=== PATIENT | male | born 1995 | race Two or more races ===

== ENCOUNTER 2017-05-18 20:51 | Inpatient (IN) | payer OTHER ==
[~2017-05-18] VITALS: Ht 160 cm; Wt 80.5 kg
--- NOTE | ~2017-05-18 | CON ---
PATIENT'S NAME: JO SHAVER [facility] AGE: 21 Y [address] ROOM: [place] [address] LOCATION: [facility] [place] ADMIT DATE: 05/18/2017 Consultation DISCHARGE DATE: FAMILY PHYSICIAN: PHYSICIAN, UNKNOWN ATTENDING PHYSICIAN: SARA LIANG DATE OF CONSULTATION: 05/19/2017 REFERRING PHYSICIAN: SMITH LY MD CHIEF COMPLAINT: Left flank pain. HISTORY OF PRESENT ILLNESS: The patient is a pleasant 21-year-old, Panamanian-speaking male from [place], who presented with acute onset of left flank pain. He ultimately underwent further evaluation with a CT scan, which had findings consistent with an 8-mm obstructing left ureteral calculus as well as a nonobstructing 8-mm left lower pole renal calculus. He was not doing well with pain control and was admitted overnight to the hospital to the Hospitalist Service for pain control. He does not have any previous history of nephrolithiasis. He denied any urinary urgency, frequency, or dysuria. He had also denied any fevers or chills. His white blood cell count upon arrival was 11.8 and is now down to 9.8 this morning. His serum creatinine level was 1.2. He had a urinalysis which was negative for nitrites and only few bacteria. During his hospitalization, he has been without tachycardia and no fevers. The patient has no further questions or concerns at this time. PAST MEDICAL HISTORY: Denies any significant past medical illnesses. PAST SURGICAL HISTORY: No prior surgery. FAMILY HISTORY: He denies any known family history of genitourinary abnormalities. ALLERGIES: NO KNOWN DRUG ALLERGIES. MEDICATIONS: He does not take any medications at home. REVIEW OF SYSTEMS: A full 10+ point review of systems was performed. Pertinent positive and negative findings included in the history of present illness. All other PATIENT'S NAME: JO SHAVER [facility] AGE: 21 Y [address] ROOM: [place] [address] LOCATION: [facility] [place] ADMIT DATE: 05/18/2017 Consultation DISCHARGE DATE: FAMILY PHYSICIAN: PHYSICIAN, UNKNOWN ATTENDING PHYSICIAN: SARA LIANG systems were reviewed and are otherwise negative. PHYSICAL EXAMINATION: VITAL SIGNS: Stable, CONSTITUTIONAL: No acute distress. The patient is awake and oriented. HEENT: Extraocular muscles intact. Mucous membranes moist. No drainage per ears and nose. CARDIAC: Good peripheral perfusion. RESPIRATORY: No audible wheezing or stridor. ABDOMEN: Soft, nontender, and nondistended. MUSCULOSKELETAL: Moves all extremities. NEUROLOGIC: No focal deficits noted. HEMATOLOGIC: No active sites of bruising or bleeding. IMAGING: I personally reviewed his images from recent CT scan consistent with findings noted above in the history of present illness. IMPRESSION: 1. Left obstructing 8-mm proximal ureteral calculus. 2. Left 8-mm lower pole nonobstructing renal calculus. PLAN: I had a long discussion via the rolling machine operator automatic with the patient regarding his treatment options. He has not been doing well with pain control, and I do not think he would be a good candidate for a trial of stone passage, given low probability of stone passage given the size of the stone. We discussed options including cystoscopy with placement of indwelling left ureteral stent with manipulation of left ureteral stone. Ultimately, the patient would be a candidate for left extracorporeal shockwave lithotripsy. His questions and concerns are addressed, and he would like to proceed with cystoscopy and placement of indwelling left ureteral stent today. SMITH LY MD GP/modl /[id number] d: 05/19/171954 t: 05/25/17 0803, CONSULTATION REPORT
--- NOTE | ~2017-05-18 | OR ---
PATIENT'S NAME: JO SHAVER [facility] AGE: 21 Y [address] ROOM: [place] [address] [place] [facility] [place] DATE: 05/18/2017 OR/Procedure Report DISCHARGE DATE: FAMILY PHYSICIAN: PHYSICIAN, UNKNOWN ATTENDING PHYSICIAN: SARA LIANG SURGEON: Smith Gutierres MD EDITOR AT LARGE: None. DATE OF PROCEDURE: 05/19/2017 PREOPERATIVE DIAGNOSES: 1. Left obstructing proximal ureteral calculus. 2. Left nephrolithiasis. POSTOPERATIVE DIAGNOSES: 1. Left obstructing proximal ureteral calculus. 2. Left nephrolithiasis. PROCEDURES: 1. Cystoscopy with manipulation of left proximal ureteral calculus. 2. Cystoscopy with placement of indwelling left ureteral stent. ANESTHESIA ADMINISTERED: Laryngal mask airway anesthesia. INDICATIONS FOR PROCEDURE: The patient is a pleasant, 21-year-old Kittitian- speaking male, who had presented with left flank pain. He was found to have an 8-mm obstructing left ureteral calculus as well as an 8-mm lower pole renal calculus and smaller upper pole punctate renal calculus. The patient was explained the risks, benefits, indications, and alternatives of the above procedure and wished to proceed and consented freely. DESCRIPTION OF OPERATION: The patient was brought back to the operating room, where he was placed on the operating room table in the supine position. A surgical time-out was called where patient identification, procedure site, and procedure were then verified. We also did verify that the patient was receiving an IV antibiotic prior to the procedure. The patient then underwent successful administration of laryngal mask airway anesthesia. The patient was then moved and placed in a low lithotomy position. His genital area was then prepped and draped in the usual sterile fashion. I carefully advanced a rigid cystoscope easily into the patient's urinary bladder. His anterior and posterior urethra were within normal limits. His bladder was negative for any bladder tumors, cellules, diverticula, or bladder stones. His ureteral orifices were noted to be in their orthotopic location. I then carefully advanced a Sensor guidewire up the patient's left ureter up to the proximal ureteral stone. Then, over the wire, I advanced a 5-Honduran open-ended ureteral catheter up to the level of the stone and then removed the wire. I PATIENT'S NAME: JO SHAVER [facility] AGE: 21 Y [address] ROOM: [place] [address] [place] [facility] [place] DATE: 05/18/2017 OR/Procedure Report DISCHARGE DATE: FAMILY PHYSICIAN: PHYSICIAN, UNKNOWN ATTENDING PHYSICIAN: SARA LIANG then used a saline flush to carefully manipulate the stone back up into the kidney. I then readvanced the wire through the catheter and removed the catheter leaving the wire in place. Then, over the wire, I advanced a 4.8- Honduran multi-length left ureteral stent deploying it, noting a good curl fluoroscopically in the patient's left renal collecting system as well as a good curl visually in the patient's bladder. I then emptied the patient's bladder. The patient was then taken out of the lithotomy position where he was then awoken from general anesthesia, extubated, and transferred to the recovery bed and transported to the recovery room in good condition. COMPLICATIONS: None. DRAINS: Indwelling 4.8-Honduran multi-length left ureteral stent. SPECIMENS: None. ESTIMATED BLOOD LOSS: Minimal. FOLLOWUP PLAN: We will coordinate with the patient on an outpatient basis for a definitive treatment of his ureteral and renal stone with extracorporeal shockwave lithotripsy. SMITH GUTIERRES MD GP/jaspreet /[id number] d: 05/19/172004 t: 05/25/17805, OPERATIVE SUMMARY
--- NOTE | ~2017-05-18 | ER ---
[facility] 21 Y [address] ROOM: [place] [address] [place] [facility] [place] DATE: 05/18/2017 ER/Outpatient Report DISCHARGE DATE: 05/19/2017 FAMILY PHYSICIAN: Physician, Unknown ATTENDING PHYSICIAN: Jose Ramon Powell Time of Patient Arrival: 2050 hours. Time of Patient Evaluation: 2109 hours. CHIEF COMPLAINT: Left flank and upper abdominal pain. HISTORY OF PRESENT ILLNESS: This is a 21-year-old male, who presents to the ER with left upper quadrant and left flank pain that started around 0545 hours this evening. The patient is and does not speak Setswana and interpretation was done through an director emergency department that he brought with him. The patient states that he has never had any pain like this before. It does make him feel nauseated. He has had no vomiting. No fever or chills. No troubles with urination. He had been working outside in the heat and did not drink very much fluids today. He states he is also having some discomfort in the midportion of his abdomen as well that is new for him. He describes his pain as sharp and twisting in nature. He denies any other problems at this time. ALLERGIES: NO KNOWN ALLERGIES. MEDICATIONS: None. PAST MEDICAL HISTORY: Negative. PAST SURGICAL HISTORY: None. SOCIAL HISTORY: Denies smoking, drug, or alcohol use. REVIEW OF SYSTEMS: All systems were reviewed and were negative with the exception of those discussed in the HPI. PHYSICAL EXAMINATION: VITAL SIGNS: Height 5 feet 5 inches stated, weight 81.6 kg taken, pulse is PATIENT'S NAME: JO SHAVER [facility] AGE: 21 Y [address] ROOM: [address] [address] [place] [facility] [place] DATE: 05/18/2017 ER/Outpatient Report DISCHARGE DATE: 05/19/2017 FAMILY PHYSICIAN: Physician, Unknown ATTENDING PHYSICIAN: Jose Ramon Powell 68, respirations 18, temperature 98.7 degrees tympanically, and saturations 98% on room air. Smiley Coma Score is 15. GENERAL: Alert 21-year-old in [id number] distress. HEENT: Head; normocephalic. He does display moist mucous membranes. Eyes; pupils are equal and reactive to light. NECK: Supple. No lymphadenopathy. LUNGS: Clear to auscultation bilaterally. No wheezes or crackles. HEART: Regular rate and rhythm. ABDOMEN: Soft. He does have tenderness in his midepigastric region with palpation. He also has tenderness in his left upper quadrant, has some left- sided CVA tenderness as well. He has good bowel sounds throughout. EXTREMITIES: No clubbing or cyanosis. He has full range of motion of all limbs. SKIN: Warm, dry, and intact. LABORATORY DATA: 1. CBC: White count is 11.8, hemoglobin is 14.4, platelets of 290,000, and ANC is 10.0. 2. CMS: Sodium is 140, potassium is 3.4, glucose is 151, BUN is 16, creatinine is 1.2, and GFR is 87. Amylase is 49, lipase is 123. H. pylori was positive. 3. Urinalysis; UA micro, white blood cells 0-2, red blood cells 10-20, epithelial 2-5, bacteria few, and mucus 1+. 4. CT scan was done per stone protocol and does show an 8 mm proximal kidney stone on the left side. IMPRESSION: 1. An 8 mm obstructed kidney stone on the proximal left ureter. 2. Helicobacter pylori positive. 3. Mild hypokalemia. ASSESSMENT AND PLAN: We did start an IV here in the emergency room and did give him a liter of IV fluids along with a total of 100 mcg of fentanyl and 30 mg of Toradol for his pain. The patient states that he is feeling better, but he is concerned about his pain coming back. The patient does not have a primary care physician to follow up with, therefore, I thought it is best that he spend the night for pain control. I did call Dr. Powell, who is on-call for the Hospitalist Service, and he will be admitting the patient and then will be consulting Neurology. The patient and patient's family understand and agree with care at this time. PATIENT'S NAME: ANTHONYKENDRICK BAYJO OROZCO [facility] AGE: 21 Y [address] ROOM: [address] [place] [id number] LOCATION: [facility] [place] DATE: 05/18/2017 ER/Outpatient Report DISCHARGE DATE: 05/19/2017 FAMILY PHYSICIAN: Physician, Carlos ATTENDING PHYSICIAN: Jose Ramon Powell PA-C FOR DO MOISÉS CALVILLO/modl /[id number] d: t: 05/26/17 1523, OUTPATIENT REPORT
--- NOTE | ~2017-05-18 | DS ---
PATIENT'S NAME: JO SHAVER [facility] AGE: 21 Y [address] ROOM: [id number] [place], [place] [address] LOCATION: [facility] [place] ADMIT DATE: 05/18/2017 Discharge Summary DISCHARGE DATE: 05/19/2017 FAMILY PHYSICIAN: Physician, Unknown ATTENDING PHYSICIAN: Jose Ramon Powell PRINCIPAL DISCHARGE DIAGNOSIS: Left ureteral stone. SECONDARY DIAGNOSES: 1. Helicobacter pylori antibody positive serum test. 2. Severe left upper quadrant pain radiating to the left flank. CONSULTATIONS: Urology, Dr. Gutierres. PROCEDURES: Cystoscopy, left stone manipulation, and left stent placement on 05/19/2017. BRIEF HISTORY: Mr. Hilda Washburn is a 21-year-old male who is Hebrew-speaking only from [place]. He presented to the emergency room at around 5 p.m. on the with left upper quadrant pain radiating to his flank, it was 8/10 in intensity. He denied urinary difficulties, fevers, chills, chest pain, or shortness of breath. He reports that he does not take in much water. Never had a kidney stone before. Never had this kind of problem before and denied any past medical history including allergies, etc. The patient was found to have slightly elevated white blood cell count of 11.8, normal hemoglobin, glucose elevated at 131. Urinalysis showed 10 to 20 red blood cells, 0 to 2 white blood cells. Urine culture is still pending. The patient was taken to the OR today. He had a very large stone, which could not be removed, he should follow up with Dr. Gutierres. INSTRUCTIONS AT DISCHARGE: 1. Regular diet, but to force fluids, plenty of water at all times. 2. Activity as tolerated. 3. Instructed to call Dr. Gutierres for schedule. He will coordinate with the patient for a followup surgery, probably need lithotripsy. MEDICATIONS ON DISCHARGE: 1. Hydrocodone 5/325 mg one p.o. every 4 hours p.r.n. for severe pain greater than or equal to 7/10. 2. Ibuprofen 400 mg one p.o. q.8 hours p.r.n. for pain. CONDITION AT DISCHARGE: Good. Less than 30 minutes discharge time spent. Thank very much for your assistance with this discharge. PATIENT'S NAME: JO SHAVER [facility] AGE: 21 Y [address] ROOM: [place] [address] LOCATION: [facility] [place] ADMIT DATE: 05/18/2017 Discharge Summary DISCHARGE DATE: 05/19/2017 FAMILY PHYSICIAN: Physician, Unknown ATTENDING PHYSICIAN: Jose Ramon Powell JUAN ALBERTO TOVAR MD LM/jaspreet /[id number] d: 05/20/17 1805 t: 05/23/17 1224, DISCHARGE SUMMARY
--- NOTE | ~2017-05-18 | HP ---
PATIENT'S NAME: MATTIE SHAVERO Dayanara [facility] AGE: 20 Y [address] ROOM: [place] [address] LOCATION: [facility] [place] ADMIT DATE: 05/18/2017 History & Physical DISCHARGE DATE: FAMILY PHYSICIAN: PHYSICIAN, UNKNOWN ATTENDING PHYSICIAN: SARA LIANG DATE OF SERVICE: CHIEF COMPLAINT: Left upper quadrant pain radiating to the left flank. HISTORY OF PRESENT ILLNESS: This is a 20-year-old, Sierra Leonean-speaking male from [place] who says that around 5 p.m. today, the patient felt this left upper quadrant pain with radiation to the left flank intensity 8/10 is constant. He denies any urinary frequency, urgency, dysuria difficulty. He also denies any fever or chills. No chest pain, no shortness of breath. He states that he drinks very little water on a daily basis. He has never had a kidney stone and has never had this problem before. He denies any other symptoms. He came here for evaluation. REVIEW OF SYSTEMS: As mentioned in the history of present illness. All other systems were reviewed and were negative except those mentioned in history of present illness. PAST MEDICAL HISTORY: None. ALLERGIES: NONE. SOCIAL HISTORY: None. HOME MEDICATIONS: None. PAST SURGICAL HISTORY: None. FAMILY HISTORY: Both parents are healthy and alive. PHYSICAL EXAMINATION: PATIENT'S NAME: JO SHAVER [facility] AGE: 20 Y [address] ROOM: [place] [address] LOCATION: [facility] [place] ADMIT DATE: 05/18/2017 History & Physical DISCHARGE DATE: FAMILY PHYSICIAN: PHYSICIAN, UNKNOWN ATTENDING PHYSICIAN: SARA LIANG VITAL SIGNS: At the time of my dictation, temperature 98, blood pressure 135/86, respirations 14, saturation 98% on room air, and heart rate 76. GENERAL APPEARANCE: Alert and oriented x3, in no acute distress. HEENT: Pupils are equally round and reactive to light. Extraocular muscles intact. Anicteric sclerae. Nasal turbinates are normal bilaterally. Moist oral mucosa. NECK: No JVD. CARDIOVASCULAR: Regular rate and rhythm. No murmur, no rubs, no gallops. Normal S1, S2. RESPIRATORY: Clear to auscultation. No rales, no rhonchi, no wheezing, and no crackles. ABDOMEN: Obese, soft, mildly tender to left upper quadrant to palpation, no abdominal rigidity, bowel sounds are present. No mass. Costovertebral angle tenderness to palpation on the left side. EXTREMITIES: No edema in upper or lower extremities. NEUROLOGIC: Grossly nonfocal. SKIN: No ulcer, no rash, no cyanosis. LABORATORY DATA: White blood cells 11.8, hemoglobin 14.4, hematocrit 39.9, platelets 290. Glucose 131, BUN 16, creatinine 1.2. Sodium 140, potassium 3.4, chloride 106, CO2 22, calcium 8.9, total protein 7.7, albumin 4.2, AST 25, ALT 28, alkaline phosphatase 127, total bilirubin 1.8, anion gap is 15.4. Urinalysis showed 25 leukocytes, negative nitrite, few bacteria, 0-2 white blood cells, GFR 87, amylase 49, lipase 123. IMAGING STUDIES: CT of abdomen and pelvis based on the preliminary report without contrast showed 8 mm obstructing stone in the left proximal ureter. ASSESSMENT AND PLAN: 1. Regarding his 8 mm obstructing nephrolithiasis on the left side: Urology consulted in the morning. The patient is making urine. Kidney function is normal. Start with IV Zosyn coverage. Check urine culture. The patient has asymptomatic bacteriuria, but he is at the risk of having bacteremia from the kidney stone. Therefore, I am covering him with IV Zosyn. Pain control is with IV morphine p.r.n. Nausea with IV Zofran p.r.n. IV fluids for hydration. N.p.o. Further plan will depend on clinical course. 2. Sepsis from UTI: he does meet criteria for sepsis from sepsis order set, sepsis time determined at 1AM of 05/19/17. Sepsis order set completed and is in chart. 2. Regarding his hypokalemia: Replace with p.o. potassium chloride. 3. Regarding his deep vein thrombosis prophylaxis: The patient is young, can ambulate, and due to the possible cystoscopy in the morning, I will not give any pharmacologic agent. In addition, he does not require any anyway because he is young and he can ambulate. 4. He is a FULL CODE. PATIENT'S NAME: ANTHONY NGUYEN JO J [facility] AGE: 20 Y [address] ROOM: [address] [address] LOCATION: [facility] [place] ADMIT DATE: 05/18/2017 History & Physical DISCHARGE DATE: FAMILY PHYSICIAN: PHYSICIAN, UNKNOWN ATTENDING PHYSICIAN: SARA LIANG Time spent in the care on the date of admission is 20 minutes, where 5 minutes was spent on chart review, 15 minutes was spent on interview, physical examination, and also going over the plan of care with the patient and the patient's family member. I also went over the plan of care with the nurse. I got a history directly from the patient. Further plan will depend on clinical course. MD MARGARET ODONNELL/jaspreet /[id number] D: [id number] T: [id number] HISTORY & PHYSICAL
[2017-05-18 21:45] LABS: BASOPHIL # 0.1 K/uL (0.0-0.2); BASOPHIL % 0.4 %; EOSINOPHIL % 0.2 %; HEMATOCRIT 39.9 % (37.0-53.0); HEMOGLOBIN 14.4 g/dL (12.0-17.0); IMMATURE GRANULOCYTE % 0.3 %; LYMPHOCYTE # 1.1 K/uL (0.8-4.0); LYMPHOCYTE % 9.1 %; MCH 29.3 pg (27.0-34.0); MCHC 36.1 gm/dL (32.0-36.5); MCV 81.1 fl (83.0-98.0); MONOCYTE # 0.7 K/uL (0.0-1.0); MONOCYTE % 5.5 %; MPV 9.6 fl (9.4-12.4); NEUTROPHIL % 84.5 %; NRBC % 0 /100WBC (0-0.00); PLATELET COUNT 290 K/uL (150-450); RBC 4.92 M/uL (4.00-6.00); RDW-CV 12.3 % (11.9-14.6); WBC 11.8 K/uL (4.0-11.0)
[2017-05-18 22:01] LABS: ALBUMIN 4.2 gm/dL (3.5-5.0); ANION GAP 15.4 (10.0-19.0); CALCIUM 8.9 mg/dL (8.5-10.5); CREATININE 1.2 mg/dL (0.6-1.3); POTASSIUM 3.4 mMol/L (3.7-5.1); TOTAL BILIRUBIN 1.8 mg/dL (0.0-1.5); TOTAL PROTEIN 7.7 g/dL (6.0-8.4)
[2017-05-18 22:48] LABS: BILIRUBIN URINE NEGATIVE (NEGATIVE); BLOOD URINE 150 /UL (NEGATIVE); COLOR URINE YELLOW (YELLOW); GLUCOSE URINE NEGATIVE (NEGATIVE); KETONE URINE 150 mg/dL (NEGATIVE); LEUKOCYTES URINE 25 /UL (NEGATIVE); NITRITE URINE NEGATIVE (NEGATIVE); PROTEIN URINE 30 mg/dL (NEGATIVE); SPEC GRAVITY URINE 1.025 (1.003-1.035); TURBIDITY URINE CLEAR (CLEAR); UROBILINOGEN URINE 1 mg/dL (NORMAL)
[2017-05-18 23:05] LABS: WBC URINE 0-2 #/HPF (NEGATIVE)
[2017-05-18 23:06] LABS: BACTERIA URINE FEW (NEGATIVE); MUCUS URINE 1+ (NEGATIVE)
[2017-05-19 05:42] LABS: HEMATOCRIT 38.5 % (37.0-53.0); HEMOGLOBIN 13.4 g/dL (12.0-17.0); MCH 29.2 pg (27.0-34.0); MCHC 34.8 gm/dL (32.0-36.5); MCV 83.9 fl (83.0-98.0); MPV 9.8 fl (9.4-12.4); RBC 4.59 M/uL (4.00-6.00); RDW-CV 12.6 % (11.9-14.6); WBC 9.8 K/uL (4.0-11.0)
[2017-05-19] MEDS ORDERED: HYDROCODON-ACE1 EAC4 PO (19:13)
[2017-05-19] MEDS ORDERED: IBUPROFEN400 MG PO (19:15)
== END 2017-05-19 20:00 | disposition disaster alternative care site (69) | DRG 872 ==
LOC: GMED 20:51 → GMSU 23:38 → EDBD 23:38 → GMSU 05-19 20:00
PROVIDERS: Physician Assistant Medical; ADMIT Internal Medicine
PROC: 0T778DZ Dilation of Left Ureter with Intraluminal Device, Via Natural or Artificial Opening Endoscopic (ICD-10-PCS; principal; 2017-05-19)
DX: A41.9 Sepsis, unspecified organism (principal); N20.1 Calculus of ureter; N39.0 Urinary tract infection, site not specified; B96.81 Helicobacter pylori [H. pylori] as the cause of diseases classified elsewhere; E87.6 Hypokalemia
CPT/HCPCS: C1769; C2617; J1885; J2270; J2405; J2543; J3010; J7030; J7050

== ENCOUNTER → 2017-06-07 | Day surgery (SDC) | payer OTHER ==
[~2017-06-07] VITALS: Ht 162.6 cm; Wt 79.1 kg
[~2017-06-07] MED LIST: HYDROCODON-ACE1 EAC4 PO; IBUPROFEN400 MG PO
--- NOTE | ~2017-06-07 | OR ---
PATIENT'S NAME: JO CHO [facility] AGE: 21 Y [address] ROOM: [place] [address] LOCATION: [facility] [place] ADMIT DATE: 06/07/2017 OR/Procedure Report DISCHARGE DATE: FAMILY PHYSICIAN: PHYSICIAN, NO ATTENDING PHYSICIAN: SMITH GUTIERRES SURGEON: Smith Gutierres MD DIAGNOSTIC CARDIAC SONOGRAPHER: None. DATE OF PROCEDURE: 06/07/2017 PREOPERATIVE DIAGNOSES: 1. Left nephrolithiasis. 2. Indwelling left ureteral stent. POSTOPERATIVE DIAGNOSES: 1. Left nephrolithiasis. 2. Indwelling left ureteral stent. PROCEDURES: 1. Left extracorporeal shockwave lithotripsy. 2. Cystoscopy with removal of indwelling left ureteral stent. INDICATIONS FOR PROCEDURE: The patient is a pleasant 21-year-old male who had recently presented with left flank pain and was found to have an obstructing 8 mm proximal left ureteral calculus for which he had ultimately underwent cystoscopy with stent placement and stone manipulation performed on May 19, 2017. The patient returns today for definitive treatment. Of note, he was also noted to have a separate 8 mm nonobstructing lower pole renal calculus. The patient was explained the risks, benefits, indications, and alternatives of above procedure and wished to proceed and consented freely. DESCRIPTION OF OPERATION: The patient was brought back to the operating room, where he was placed on the lithotripsy treatment bed in the supine position. A surgical time-out was called where patient identification, surgical site, and procedure were then verified. We also did verify that the patient received an IV Levaquin antibiotic within an hour of beginning the procedure. The patient underwent again successful administration of monitored anesthesia care. The patient was then kept in the supine position where we then brought his renal calculi into focal point using fluoroscopy then. We started performing shockwave lithotripsy on the stone starting at 16 kilovolts and working up sequentially to 24 kilovolts in energy. Of note, he did have both stones now located in his mid to lower pole collecting system and we started with the superior stone first and we had nice fragmentation by fluoroscopic monitoring and we delivered 1500 shocks to the first stone and then retargeted the more inferior stone and delivered 1500 shocks to that stone. We had nice fragmentation as well. At the conclusion the procedure, given the nice PATIENT'S NAME: JO CHO [facility] AGE: 21 Y [address] ROOM: [place] [address] LOCATION: [facility] [place] ADMIT DATE: 06/07/2017 OR/Procedure Report DISCHARGE DATE: FAMILY PHYSICIAN: PHYSICIAN, NO ATTENDING PHYSICIAN: SMITH GUTIERRES fragmentation, I opted to go ahead and remove the stent. The patient was then kept in the supine position where his genital area was then prepped in the usual sterile fashion. I carefully advanced a flexible cystoscope into the patient's bladder. His anterior and posterior urethra were within normal limits. I did visualize the distal curl of the indwelling left ureteral stent. I used the stent graspers to grab the distal curl and removed the stent in its entirety without complication. The patient did tolerate the procedure. The patient was then awoken from monitored anesthesia care where he was then transferred over to the recovery bed, transferred to the recovery room in good condition. COMPLICATIONS: None. DRAINS: None. SPECIMENS: None. ESTIMATED BLOOD LOSS: Minimal. FOLLOWUP PLAN: We will plan to have the patient back for followup in Urology Clinic in approximately 3 weeks for a plain film KUB. At that time, we will also discuss stone prevention with the patient moving forward. SMITH GUTIERRES MD GP/jaspreet /[id number] d: 06/07/17 1217 t: 06/12/17 0938, OPERATIVE SUMMARY
== END | disposition disaster alternative care site (69) ==
LOC: GPOC 06-03 11:00 → GSDC 08:44
PROC: 0TF4XZZ Fragmentation in Left Kidney Pelvis, External Approach (ICD-10-PCS; principal; 2017-06-07)
PROC: 0TP98DZ Removal of Intraluminal Device from Ureter, Via Natural or Artificial Opening Endoscopic (ICD-10-PCS; 2017-06-07)
DX: N20.0 Calculus of kidney (principal)
CPT/HCPCS: J1956; J2001; J7120

== ENCOUNTER → 2017-06-30 | Outpatient (CLI) | payer SELFPAY | END | disposition disaster alternative care site (69) | LOC: GRAD 13:29 | DX: Z46.6 Encounter for fitting and adjustment of urinary device (principal); Z98.890 Other specified postprocedural states ==